=== PATIENT | male | born 1950 | race Caucasian/White ===

== ENCOUNTER 2016-12-16 13:51 | Inpatient (IN) | payer OTHER, MEDICAID ==
[~2016-12-16] VITALS: Ht 172.7 cm; Wt 88.5 kg
[2016-12-16 15:39] LABS: BASOPHILS % 0.3 % (0.0-2.0); EOSINOPHILS % 0.7 % (0.0-5.0); HEMATOCRIT. 37.8 % (42.0-52.0); HEMOGLOBIN. 12.1 g/dL (14.0-18.0); MEAN CORPUSCULAR HEMOGLOBIN 29.2 pg (28.0-32.0); MEAN CORPUSCULAR VOLUME 90.9 fL (80.0-94.0); MEAN PLATELET VOLUME 7.8 fl (7.4-10.4); MONOCYTES % 12.3 % (2.0-8.0); NEUTROPHILS % 52.7 % (40.0-76.0); PLATELET 156 x1000/uL (130-400); RED BLOOD CELL COUNT 4.15 mill/uL (4.7-6.1); RED CELL DISTRIBUTION WIDTH 15.5 % (11.6-14.6)
[2016-12-16 15:46] LABS: INR 1.2; PROTHROMBIN TIME 12.2 sec
[2016-12-16 15:55] LABS: CARBON DIOXIDE 32 mEq/L (21-32); CHLORIDE 100 mEq/L (98-107); TROPONIN I < 0.02 ng/mL (0.00-0.04)
[2016-12-16] MEDS ORDERED: SODIUM CHLORIDE 0.9% 500 ML IV ONE (16:30)
[2016-12-16] MEDS ORDERED: DEXTROSE 50% WATER 50ML SYRINGE IV PRN (22:00)
[2016-12-16] MEDS: NIFEDIPINE XL 60MG TAB PO SCH (22:23)
[2016-12-16] MEDS: HYDRALAZINE HCL 50MG TABLET PO SCH (22:23)
[2016-12-17] MEDS ORDERED: HYDRALAZINE 20MG/ML VIAL IV PRN (00:45)
[2016-12-17] MEDS: HYDRALAZINE HCL 50MG TABLET PO SCH ×3 (06:00→22:00)
[2016-12-17] MEDS ORDERED: SODIUM CHLORIDE 0.9% 250 ML IV NR (06:30)
[2016-12-17] MEDS: INSULIN LISPRO 100 UNITS/ML SUBCUT SCH ×4 (08:10→20:38)
[2016-12-17] MEDS: BLOOD SUGAR DIAGNOSTIC STRIP TEST SCH ×4 (08:10→20:38)
[2016-12-17] MEDS: PANTOPRAZOLE 40MG DR TABLET PO SCH (08:26)
[2016-12-17] MEDS: NIFEDIPINE XL 60MG TAB PO SCH (08:28)
[2016-12-17] MEDS: ENOXAPARIN 30MG/0.3ML SYR SUBCUT SCH (09:00)
[2016-12-17 12:07] LABS: BASOPHILS % 0.2 % (0.0-2.0); HEMATOCRIT. 36.7 % (42.0-52.0); HEMOGLOBIN. 11.9 g/dL (14.0-18.0); LYMPHOCYTES % 31.4 % (20.0-50.0); MEAN CORPUSCULAR HEMOGLOBIN 29.4 pg (28.0-32.0); MEAN CORPUSCULAR VOLUME 90.4 fL (80.0-94.0); MEAN PLATELET VOLUME 8.3 fl (7.4-10.4); MONOCYTES % 11.8 % (2.0-8.0); NEUTROPHILS % 55.6 % (40.0-76.0); PLATELET 159 x1000/uL (130-400); RED BLOOD CELL COUNT 4.06 mill/uL (4.7-6.1); RED CELL DISTRIBUTION WIDTH 15.4 % (11.6-14.6)
[2016-12-17 12:32] LABS: PHOSPHORUS 3.8 mg/dL (2.5-4.9)
[2016-12-18] MEDS: HYDRALAZINE HCL 50MG TABLET PO SCH ×3 (05:38→21:07)
[2016-12-18 06:54] LABS: BASOPHILS % 0.3 % (0.0-2.0); EOSINOPHILS % 0.9 % (0.0-5.0); HEMATOCRIT. 35.6 % (42.0-52.0); HEMOGLOBIN. 11.5 g/dL (14.0-18.0); LYMPHOCYTES % 34.5 % (20.0-50.0); MEAN CORPUSCULAR HEMOGLOBIN 29.4 pg (28.0-32.0); MEAN CORPUSCULAR VOLUME 91.1 fL (80.0-94.0); MEAN PLATELET VOLUME 8.4 fl (7.4-10.4); MONOCYTES % 12.4 % (2.0-8.0); NEUTROPHILS % 51.9 % (40.0-76.0); PLATELET 108 x1000/uL (130-400); RED BLOOD CELL COUNT 3.91 mill/uL (4.7-6.1); RED CELL DISTRIBUTION WIDTH 15.5 % (11.6-14.6)
[2016-12-18 07:03] LABS: CHLORIDE 109 mEq/L (98-107)
[2016-12-18] MEDS: BLOOD SUGAR DIAGNOSTIC STRIP TEST SCH ×4 (07:15→21:00)
[2016-12-18] MEDS: INSULIN LISPRO 100 UNITS/ML SUBCUT SCH ×4 (07:16→21:00)
[2016-12-18 07:21] LABS: CARBON DIOXIDE 25 mEq/L (21-32); HDL CHOLESTEROL 30 mg/dL (40-59); LDL CHOLESTEROL 116 mg/dL (5-100)
[2016-12-18] MEDS: FOLIC ACID/VITAMIN B COMP W-C TABLET PO SCH (08:01)
[2016-12-18] MEDS: PANTOPRAZOLE 40MG DR TABLET PO SCH (08:01)
[2016-12-18] MEDS: NIFEDIPINE XL 60MG TAB PO SCH (08:01)
[2016-12-18] MEDS: ENOXAPARIN 30MG/0.3ML SYR SUBCUT SCH (08:01)
[2016-12-19] MEDS: HYDRALAZINE HCL 50MG TABLET PO SCH ×2 (04:55→16:53)
[2016-12-19] MEDS: BLOOD SUGAR DIAGNOSTIC STRIP TEST SCH ×2 (04:59→12:40)
[2016-12-19] MEDS: INSULIN LISPRO 100 UNITS/ML SUBCUT SCH ×2 (08:10→13:10)
[2016-12-19] MEDS ORDERED: FAMOTIDINE 20MG TABLET PO SCH (09:00)
[2016-12-19] MEDS: HYDROCODONE/ACETAMINOPHEN 5/325MG TABLET PO PRN ×2 (09:11→15:55)
[2016-12-19] MEDS: FOLIC ACID/VITAMIN B COMP W-C TABLET PO SCH (09:11)
[2016-12-19] MEDS: NIFEDIPINE XL 60MG TAB PO SCH (09:11)
[2016-12-19] MEDS: ENOXAPARIN 30MG/0.3ML SYR SUBCUT SCH (09:12)
[2016-12-19 09:39] LABS: BASOPHILS % 0.2 % (0.0-2.0); EOSINOPHILS % 1.6 % (0.0-5.0); HEMATOCRIT. 40.9 % (42.0-52.0); HEMOGLOBIN. 13.1 g/dL (14.0-18.0); LYMPHOCYTES % 37.4 % (20.0-50.0); MEAN CORPUSCULAR HEMOGLOBIN 29.1 pg (28.0-32.0); MEAN CORPUSCULAR VOLUME 90.9 fL (80.0-94.0); MEAN PLATELET VOLUME 8.3 fl (7.4-10.4); MONOCYTES % 10.6 % (2.0-8.0); NEUTROPHILS % 50.2 % (40.0-76.0); PLATELET 124 x1000/uL (130-400); RED CELL DISTRIBUTION WIDTH 15.5 % (11.6-14.6)
[2016-12-19 09:51] LABS: PHOSPHORUS 3.9 mg/dL (2.5-4.9)
[2016-12-19 15:55] VITALS: BP 129/78
== END 2016-12-19 16:45 | disposition home or self-care (01) | DRG 308 ==
LOC: ER 14:30 → 7WST 16:25 → OBSVTOIN 16:25 → INTOOBSV 16:25 → EDBEDREQ 16:30 → ENRESERV 18:25
PROVIDERS: ADMIT Internal Medicine; ATTEND Internal Medicine
PROC: 5A1D00Z (ICD-10-PCS; principal; 2016-12-17)
DX: R00.1 Bradycardia, unspecified (principal); N18.6 End stage renal disease; I12.0 Hypertensive chronic kidney disease with stage 5 chronic kidney disease or end stage renal disease; E46 Unspecified protein-calorie malnutrition; R55 Syncope and collapse; B19.20 Unspecified viral hepatitis C without hepatic coma; D64.9 Anemia, unspecified; D69.6 Thrombocytopenia, unspecified; E11.22 Type 2 diabetes mellitus with diabetic chronic kidney disease; E66.9 Obesity, unspecified; E78.5 Hyperlipidemia, unspecified; M10.9 Gout, unspecified; N62 Hypertrophy of breast; N64.4 Mastodynia; E55.9 Vitamin D deficiency, unspecified; F10.10 Alcohol abuse, uncomplicated; F43.21 Adjustment disorder with depressed mood; K80.20 Calculus of gallbladder without cholecystitis without obstruction; Z88.0 Allergy status to penicillin; Z68.29 Body mass index [BMI] 29.0-29.9, adult; Z93.3 Colostomy status; Z99.2 Dependence on renal dialysis; T46.5X5A Adverse effect of other antihypertensive drugs, initial encounter
CPT/HCPCS: 36415; 70450; 71010; 80048; 80053; 80061; 82962; 83735; 84100; 84443; 84484; 85025; 85610; 93005; 93880; 96360; 96361; 99285; J0360; J1650; J1815; J7030; J7040; J7050

== ENCOUNTER 2016-12-22 17:53 | Emergency (ER) | payer OTHER, MEDICAID ==
[~2016-12-22] VITALS: Ht 172.7 cm; Wt 71.3 kg
[2016-12-22] MEDS ORDERED: ONDANSETRON HCL 4MG/2ML VIAL IV STA (19:09)
[2016-12-22 19:46] LABS: BASOPHILS % 0.1 % (0.0-2.0); EOSINOPHILS % 0.3 % (0.0-5.0); HEMATOCRIT. 38.9 % (42.0-52.0); HEMOGLOBIN. 12.6 g/dL (14.0-18.0); MEAN CORPUSCULAR HEMOGLOBIN 29.1 pg (28.0-32.0); MEAN CORPUSCULAR VOLUME 89.7 fL (80.0-94.0); MEAN PLATELET VOLUME 7.8 fl (7.4-10.4); MONOCYTES % 12.6 % (2.0-8.0); PLATELET 138 x1000/uL (130-400); RED BLOOD CELL COUNT 4.34 mill/uL (4.7-6.1); RED CELL DISTRIBUTION WIDTH 15.5 % (11.6-14.6)
[2016-12-22 19:48] LABS: CLARITY URINE CLEAR (CLEAR); COLOR URINE YELLOW (YELLOW); KETONES URINE NEGATIVE (NEGATIVE); LEUKOCYTE ESTERASE URINE NEGATIVE (NEGATIVE); NITRITE URINE NEGATIVE (NEGATIVE); OCCULT BLOOD URINE TRACE (NEGATIVE); PH URINE >=9.0 (4.5-8.0); PROTEIN URINE 3+ (NEGATIVE); SPECIFIC GRAVITY URINE 1.012 (1.005-1.030); UROBILINOGEN URINE 0.2 E.U./dL (0.2-1.0)
[2016-12-22 19:50] LABS: INR 1.3; PROTHROMBIN TIME 13.9 sec
[2016-12-22 19:54] LABS: CARBON DIOXIDE 30 mEq/L (21-32); CHLORIDE 99 mEq/L (98-107)
[2016-12-22 20:00] LABS: TROPONIN I < 0.02 ng/mL (0.00-0.04)
[2016-12-22] MEDS ORDERED: CLONIDINE 0.1MG TABLET PO ONE (21:45)
[2016-12-22 22:46] VITALS: BP 182/102
== END 2016-12-22 23:51 | disposition home or self-care (01) ==
LOC: ER 19:06
DX: I12.0 Hypertensive chronic kidney disease with stage 5 chronic kidney disease or end stage renal disease (principal); N18.6 End stage renal disease; E11.22 Type 2 diabetes mellitus with diabetic chronic kidney disease; R11.10 Vomiting, unspecified; E78.00 Pure hypercholesterolemia, unspecified; Z93.3 Colostomy status; Z88.0 Allergy status to penicillin; Z99.2 Dependence on renal dialysis
CPT/HCPCS: 36415; 70450; 71010; 80053; 81001; 82962; 83605; 83690; 84484; 85025; 85610; 87040; 87086; 93005; 96374; 99285; J2405

== ENCOUNTER 2017-10-11 05:22 | Inpatient (IN) | payer OTHER, MEDICAID ==
[~2017-10-11] VITALS: Ht 170.2 cm; Wt 84.4 kg
[2017-10-11] MEDS ORDERED: CLON1PAT38 TD (06:22)
[2017-10-11] MEDS ORDERED: SEVE800T8 PO (06:22)
[2017-10-11] MEDS ORDERED: GLIP10TA10 PO (06:24)
[2017-10-11 06:26] LABS: CLARITY URINE CLEAR (CLEAR); COLOR URINE YELLOW (YELLOW); KETONES URINE NEGATIVE (NEGATIVE); LEUKOCYTE ESTERASE URINE NEGATIVE (NEGATIVE); NITRITE URINE NEGATIVE (NEGATIVE); OCCULT BLOOD URINE NEGATIVE (NEGATIVE); PH URINE 8.5 (4.5-8.0); PROTEIN URINE 3+ (NEGATIVE); SPECIFIC GRAVITY URINE 1.013 (1.005-1.030); UROBILINOGEN URINE 0.2 E.U./dL (0.2-1.0)
[2017-10-11] MEDS: SODIUM CHLORIDE 0.9% 500 ML IV NR ×2 (06:30→11:30)
[2017-10-11] MEDS ORDERED: BUPIVACAINE HCL 0.5% (5MG/ML) 50ML ONE ×2 (07:07→07:39)
[2017-10-11] MEDS ORDERED: ROCURONIUM BROMIDE 10MG/ML VIAL 5ML IV ONE (07:27)
[2017-10-11] MEDS ORDERED: FENTANYL CITRATE/PF 50MCG/ML 5ML VIAL ONE (07:27)
[2017-10-11] MEDS ORDERED: PROPOFOL 200MG/20ML VIAL IV ONE (07:28)
[2017-10-11] MEDS ORDERED: LEVOFLOXACIN 500MG PREMIX 100 ML IV ONE (07:30)
[2017-10-11] MEDS ORDERED: LIDOCAINE HCL/PF 1% 10 MG/ML 5ML VIAL ONE (07:30)
[2017-10-11] MEDS ORDERED: SUCCINYLCHOLINE CHLORIDE 200MG/10ML VIAL IV ONE (07:30)
[2017-10-11] MEDS ORDERED: MIDAZOLAM HCL 2 MG/2 ML VIAL ONE (07:31)
[2017-10-11] MEDS ORDERED: LABETALOL HCL 5MG/ML VIAL 20ML IV PRN (08:00)
[2017-10-11] MEDS ORDERED: ONDANSETRON HCL 4MG/2ML VIAL IV PRN (08:00)
[2017-10-11] MEDS ORDERED: MEPERIDINE HCL/PF 25MG/ML CPJ IV PRN (08:00)
[2017-10-11] MEDS ORDERED: PHENYLEPHRINE HCL 10 MG/ML 1ML (IV VIAL) IV ONE (08:22)
[2017-10-11] MEDS ORDERED: BACITRACIN 50,000 UNITS/VIAL ONE (08:57)
[2017-10-11] MEDS ORDERED: BUPIVACAINE HCL 0.5% 290 ML in ON-Q PM025 DRUG DELIV DEVICE 1 EA IR SCH (09:00)
[2017-10-11] MEDS ORDERED: METOCLOPRAMIDE HCL 10MG/2ML VIAL ONE (09:14)
[2017-10-11] MEDS ORDERED: GLYCOPYRROLATE 0.2 MG/ML 2ML VIAL ONE (09:14)
[2017-10-11] MEDS ORDERED: NEOSTIGMINE METHYLSULFATE 1MG/ML 10 ML VIAL ONE (09:14)
[2017-10-11] MEDS: HYDROMORPHONE HCL/PF 2MG/ML CPJ IV PRN ×5 (10:05→11:25)
[2017-10-11] MEDS ORDERED: NALOXONE INJ IV PRN (10:15)
[2017-10-11] MEDS ORDERED: DIPHENHYDRAMINE INJ IV PRN (10:15)
[2017-10-11] MEDS ORDERED: ONDANSETRON INJ IV PRN (10:15)
[2017-10-11] MEDS ORDERED: HYDROMORPHONE PCA 10MG/50ML IV PRN (10:15)
[2017-10-11 12:30] VITALS: BP 160/70
[2017-10-11 12:45] VITALS: BP 160/70
[2017-10-11] MEDS ORDERED: ROPI0.5T PO (13:26)
[2017-10-11] MEDS: FAMOTIDINE 20MG/2ML VIAL IV SCH (14:58)
[2017-10-11] MEDS: DEXT 5%/0.45% NACL KCL 20MEQ/L 1,000 ML IV SCH (15:05)
[2017-10-11 16:00] VITALS: BP 119/55
[2017-10-11] MEDS ORDERED: DEXTROSE 50% WATER 50ML SYRINGE IV PRN (19:30)
[2017-10-11] MEDS ORDERED: SODIUM CHLORIDE 0.9% 500 ML IV ONE (20:30)
[2017-10-11] MEDS: BLOOD SUGAR DIAGNOSTIC STRIP TEST SCH (20:44)
[2017-10-11] MEDS: INSULIN LISPRO 100 UNITS/ML SUBCUT SCH (20:44)
[2017-10-11 21:24] VITALS: BP 90/51
[2017-10-11 21:51] VITALS: BP 91/47
[2017-10-11 23:50] VITALS: BP 95/46
[2017-10-12] VITALS (14 sets, daily range): BP systolic 82–126; BP diastolic 42–63
[2017-10-12 00:25] LABS: BASOPHILS % 0.1 % (0.0-2.0); EOSINOPHILS % 0.1 % (0.0-5.0); HEMATOCRIT. 33.8 % (42.0-52.0); HEMOGLOBIN. 11.8 g/dL (14.0-18.0); MEAN CORPUSCULAR HEMOGLOBIN 34.8 pg (28.0-32.0); MEAN CORPUSCULAR VOLUME 99.5 fL (80.0-94.0); MEAN PLATELET VOLUME 9.4 fl (7.4-10.4); MONOCYTES % 8.2 % (2.0-8.0); NEUTROPHILS % 78.6 % (40.0-76.0); PLATELET 108 x1000/uL (130-400); RED CELL DISTRIBUTION WIDTH 14.4 % (11.6-14.6)
[2017-10-12] MEDS: DEXT 5%/0.45% NACL KCL 20MEQ/L 1,000 ML IV SCH (01:52)
[2017-10-12] MEDS ORDERED: SODIUM CHLORIDE 0.9% 250 ML IV NR (06:45)
[2017-10-12] MEDS: DEXT 5%/0.45% NACL 1000ML 1,000 ML IV SCH ×4 (07:39→21:36)
[2017-10-12] MEDS: BLOOD SUGAR DIAGNOSTIC STRIP TEST SCH ×4 (07:55→20:08)
[2017-10-12] MEDS: INSULIN LISPRO 100 UNITS/ML SUBCUT SCH ×4 (08:00→20:08)
[2017-10-12] MEDS: FAMOTIDINE 20MG/2ML VIAL IV SCH (08:39)
[2017-10-12] MEDS: ACETAMINOPHEN 650MG SUPP PR PRN ×2 (10:07→19:59)
[2017-10-12] MEDS ORDERED: VANCOMYCIN 1 G PREMIX 200 ML IV SCH (12:00)
[2017-10-12] MEDS ORDERED: SODIUM CHLORIDE 0.9% 250 ML IV ONE (12:15)
[2017-10-12] MEDS ORDERED: AMIKACIN SULFATE 400 MG in SODIUM CHLORIDE 0.9% 100 ML IV SCH (17:30)
[2017-10-12 17:33] LABS: HEMATOCRIT 34.6 % (42.0-52.0); HEMOGLOBIN 11.8 g/dL (14.0-18.0); MEAN CORPUSCULAR HEMOGLOBIN 34.4 pg (28.0-32.0); PLATELET 88 x1000/uL (130-400); RED BLOOD CELL COUNT 3.43 mill/uL (4.7-6.1); RED CELL DISTRIBUTION WIDTH 14.6 % (11.6-14.6)
[2017-10-12 17:40] LABS: CHLORIDE 109 mEq/L (98-107)
[2017-10-12 17:46] LABS: PHOSPHORUS 2.5 mg/dL (2.5-4.9)
[2017-10-13] VITALS (11 sets, daily range): BP systolic 115–140; BP diastolic 55–70
[2017-10-13 06:39] LABS: INR 1.8; PARTIAL THROMBOPLASTIN TIME 33.2 sec (23.4-31.0); PROTHROMBIN TIME 18.5 sec (9.4-11.6)
[2017-10-13 07:20] LABS: BASOPHILS % 0.2 % (0.0-2.0); EOSINOPHILS % 0.9 % (0.0-5.0); HEMATOCRIT. 30.8 % (42.0-52.0); HEMOGLOBIN. 10.5 g/dL (14.0-18.0); LYMPHOCYTES % 11.9 % (20.0-50.0); MEAN CORPUSCULAR HEMOGLOBIN 34.4 pg (28.0-32.0); MEAN CORPUSCULAR VOLUME 100.3 fL (80.0-94.0); MEAN PLATELET VOLUME 9.7 fl (7.4-10.4); MONOCYTES % 8.7 % (2.0-8.0); NEUTROPHILS % 78.3 % (40.0-76.0); PLATELET 82 x1000/uL (130-400); RED BLOOD CELL COUNT 3.07 mill/uL (4.7-6.1); RED CELL DISTRIBUTION WIDTH 14.1 % (11.6-14.6)
[2017-10-13 07:27] LABS: CHLORIDE 109 mEq/L (98-107)
[2017-10-13 07:40] LABS: PHOSPHORUS 4.3 mg/dL (2.5-4.9)
[2017-10-13] MEDS: BLOOD SUGAR DIAGNOSTIC STRIP TEST SCH ×4 (07:58→21:00)
[2017-10-13] MEDS: INSULIN LISPRO 100 UNITS/ML SUBCUT SCH ×4 (07:58→21:00)
[2017-10-13] MEDS: FAMOTIDINE 20MG/2ML VIAL IV SCH (09:10)
[2017-10-13] MEDS: DEXT 5%/0.45% NACL 1000ML 1,000 ML IV SCH (17:24)
[2017-10-14] VITALS (13 sets, daily range): BP systolic 109–149; BP diastolic 49–71
[2017-10-14] MEDS: MORPHINE SULFATE 4 MG/ML CPJ (NOT FOR IM USE) IV PRN ×3 (04:18→19:28)
[2017-10-14] MEDS: BLOOD SUGAR DIAGNOSTIC STRIP TEST SCH ×4 (07:30→21:13)
[2017-10-14] MEDS: INSULIN LISPRO 100 UNITS/ML SUBCUT SCH ×4 (08:00→21:00)
[2017-10-14 08:06] LABS: BASOPHILS % 0.1 % (0.0-2.0); EOSINOPHILS % 1.8 % (0.0-5.0); HEMATOCRIT. 29.4 % (42.0-52.0); HEMOGLOBIN. 9.9 g/dL (14.0-18.0); LYMPHOCYTES % 14.7 % (20.0-50.0); MEAN CORPUSCULAR HEMOGLOBIN 33.9 pg (28.0-32.0); MEAN CORPUSCULAR VOLUME 100.6 fL (80.0-94.0); MEAN PLATELET VOLUME 9.5 fl (7.4-10.4); MONOCYTES % 7.6 % (2.0-8.0); NEUTROPHILS % 75.8 % (40.0-76.0); PLATELET 86 x1000/uL (130-400); RED BLOOD CELL COUNT 2.92 mill/uL (4.7-6.1)
[2017-10-14] MEDS: FAMOTIDINE 20MG/2ML VIAL IV SCH (08:45)
[2017-10-14] MEDS: DEXT 5%/0.45% NACL 1000ML 1,000 ML IV SCH (13:19)
[2017-10-15] VITALS (7 sets, daily range): BP systolic 141–166; BP diastolic 71–78
[2017-10-15] MEDS: MORPHINE SULFATE 4 MG/ML CPJ (NOT FOR IM USE) IV PRN ×2 (06:06→18:28)
[2017-10-15 07:09] LABS: HEMATOCRIT 31.1 % (42.0-52.0); HEMOGLOBIN 10.6 g/dL (14.0-18.0); MEAN CORPUSCULAR HEMOGLOBIN 33.9 pg (28.0-32.0); MEAN CORPUSCULAR VOLUME 99.4 fL (80.0-94.0); PLATELET 91 x1000/uL (130-400); RED BLOOD CELL COUNT 3.13 mill/uL (4.7-6.1); RED CELL DISTRIBUTION WIDTH 14.1 % (11.6-14.6)
[2017-10-15] MEDS: BLOOD SUGAR DIAGNOSTIC STRIP TEST SCH ×4 (07:53→21:00)
[2017-10-15] MEDS: INSULIN LISPRO 100 UNITS/ML SUBCUT SCH ×4 (07:53→21:00)
[2017-10-15] MEDS: FAMOTIDINE 20MG/2ML VIAL IV SCH (08:34)
[2017-10-15] MEDS: ONDANSETRON HCL 4MG/2ML VIAL IV PRN (10:54)
[2017-10-15] MEDS: DEXT 5%/0.45% NACL 1000ML 1,000 ML IV SCH (15:55)
[2017-10-16] VITALS (7 sets, daily range): BP systolic 129–170; BP diastolic 62–91
[2017-10-16] MEDS: MORPHINE SULFATE 4 MG/ML CPJ (NOT FOR IM USE) IV PRN ×2 (00:28→05:54)
[2017-10-16] MEDS: ONDANSETRON HCL 4MG/2ML VIAL IV PRN (05:49)
[2017-10-16 06:52] LABS: HEMATOCRIT 31.1 % (42.0-52.0); HEMOGLOBIN 10.7 g/dL (14.0-18.0); MEAN CORPUSCULAR VOLUME 98.9 fL (80.0-94.0); PLATELET 100 x1000/uL (130-400); RED BLOOD CELL COUNT 3.14 mill/uL (4.7-6.1); RED CELL DISTRIBUTION WIDTH 13.9 % (11.6-14.6)
[2017-10-16] MEDS: BLOOD SUGAR DIAGNOSTIC STRIP TEST SCH ×4 (07:34→21:25)
[2017-10-16] MEDS: INSULIN LISPRO 100 UNITS/ML SUBCUT SCH ×4 (07:35→21:00)
[2017-10-16] MEDS: FAMOTIDINE 20MG/2ML VIAL IV SCH (09:08)
[2017-10-16] MEDS ORDERED: CLONIDINE 0.1MG TABLET PO PRN (10:30)
[2017-10-16] MEDS: DEXT 5%/0.45% NACL 1000ML 1,000 ML IV SCH (11:50)
[2017-10-16] MEDS: NIFEDIPINE XL 60MG TAB PO SCH (11:50)
[2017-10-16] MEDS: HYDRALAZINE HCL 50MG TABLET PO SCH (21:00)
[2017-10-17] VITALS: BP 139/74
[2017-10-17] MEDS: DEXT 5%/0.45% NACL 1000ML 1,000 ML IV SCH (01:15)
[2017-10-17 04:00] VITALS: BP 155/68
[2017-10-17] MEDS: BLOOD SUGAR DIAGNOSTIC STRIP TEST SCH (07:30)
[2017-10-17 08:00] VITALS: BP 133/66
[2017-10-17] MEDS: INSULIN LISPRO 100 UNITS/ML SUBCUT SCH (08:00)
[2017-10-17] MEDS: HYDRALAZINE HCL 50MG TABLET PO SCH (09:20)
[2017-10-17] MEDS: FAMOTIDINE 20MG/2ML VIAL IV SCH (09:20)
[2017-10-17] MEDS: NIFEDIPINE XL 60MG TAB PO SCH (09:20)
[2017-10-17 09:59] VITALS: BP 132/62
== END 2017-10-17 11:30 | disposition home or self-care (01) | DRG 329 ==
LOC: ORIP 05:22 → UNDOADMIN 05:22 → ORIP 12:16 → 6EST 12:16 → 5EST 21:35 → 6EST 21:35 → 5EST 21:36
PROVIDERS: ADMIT Internal Medicine; ATTEND Internal Medicine
PROC: 0DQM0ZZ Repair Descending Colon, Open Approach (ICD-10-PCS; principal; 2017-10-11 07:30)
PROC: 5A1D70Z Performance of Urinary Filtration, Intermittent, Less than 6 Hours Per Day (ICD-10-PCS; 2017-10-12)
PROC: 5A1D70Z Performance of Urinary Filtration, Intermittent, Less than 6 Hours Per Day (ICD-10-PCS; 2017-10-14)
PROC: 5A1D70Z Performance of Urinary Filtration, Intermittent, Less than 6 Hours Per Day (ICD-10-PCS; 2017-10-17)
DX: Z43.3 Encounter for attention to colostomy (principal); N18.6 End stage renal disease; I95.9 Hypotension, unspecified; D69.6 Thrombocytopenia, unspecified; E11.22 Type 2 diabetes mellitus with diabetic chronic kidney disease; I12.0 Hypertensive chronic kidney disease with stage 5 chronic kidney disease or end stage renal disease; K56.7 Ileus, unspecified; F32.9 Major depressive disorder, single episode, unspecified; E87.6 Hypokalemia; B19.20 Unspecified viral hepatitis C without hepatic coma; D53.9 Nutritional anemia, unspecified; Y83.3 Surgical operation with formation of external stoma as the cause of abnormal reaction of the patient, or of later complication, without mention of misadventure at the time of the procedure; E78.5 Hyperlipidemia, unspecified; M10.9 Gout, unspecified; Z90.49 Acquired absence of other specified parts of digestive tract; Z87.828 Personal history of other (healed) physical injury and trauma; Z99.2 Dependence on renal dialysis; Z88.0 Allergy status to penicillin
CPT/HCPCS: 36415; 71045; 74018; 80048; 80053; 81003; 82962; 83036; 83735; 84100; 84132; 85025; 85027; 85610; 85730; 86850; 86900; 87040; 87086; 88304; 88305; 93005; 97116; 97162; 97530; J0278; J0330; J1170; J1956; J2250; J2270; J2370; J2405; J2704; J2710; J2765; J3010; J3370; J3490; J7030; J7040; J7050

== ENCOUNTER 2018-03-20 13:08 | Inpatient (IN) | payer OTHER, MEDICAID ==
[~2018-03-20] VITALS: Ht 172.7 cm; Wt 83.9 kg
[~2018-03-20 13:08] MED LIST: CLON1PAT38 TD; GLIP10TA10 PO; ROPI0.5T PO; SEVE800T8 PO
[2018-03-20] MEDS ORDERED: MORPHINE SULFATE 4 MG/ML CPJ (NOT FOR IM USE) IV STA (15:13)
[2018-03-20] MEDS ORDERED: SODIUM CHLORIDE 0.9% 1,000 ML IV ONE (15:13)
[2018-03-20] MEDS ORDERED: ONDANSETRON HCL 4MG/2ML INJ IV STA (15:13)
[2018-03-20] MEDS ORDERED: LIDOCAINE 1%/EPI 1:100,000 10 ML VIAL IJ ONE (15:30)
[2018-03-20 16:07] LABS: BASOPHILS % 0.2 % (0.0-2.0); EOSINOPHILS % 0.7 % (0.0-5.0); HEMATOCRIT. 32.9 % (42.0-52.0); HEMOGLOBIN. 11.1 g/dL (14.0-18.0); LYMPHOCYTES % 20.8 % (20.0-50.0); MEAN CORPUSCULAR HEMOGLOBIN 33.3 pg (28.0-32.0); MEAN CORPUSCULAR VOLUME 98.8 fL (80.0-94.0); MEAN PLATELET VOLUME 9.2 fl (7.4-10.4); MONOCYTES % 14.7 % (2.0-8.0); NEUTROPHILS % 63.6 % (40.0-76.0); PLATELET 109 x1000/uL (130-400); RED BLOOD CELL COUNT 3.33 mill/uL (4.7-6.1); RED CELL DISTRIBUTION WIDTH 15.4 % (11.6-14.6)
[2018-03-20 16:13] LABS: CHLORIDE 96 mEq/L (98-107); INR 1.1; PARTIAL THROMBOPLASTIN TIME 27.9 sec (23.4-31.0); PROTHROMBIN TIME 11.3 sec (9.1-11.1)
[2018-03-20 23:30] VITALS: BP 130/76
[2018-03-21] VITALS: BP 130/76
[2018-03-21] MEDS ORDERED: GABA-529 MT (00:31)
[2018-03-21] MEDS ORDERED: CLON0.5T23 MT (00:31)
[2018-03-21] MEDS ORDERED: ROPINIROLE HCL 2 MG PO SCH (01:00)
[2018-03-21] MEDS ORDERED: MEDICATION NOT ON FORMULARY EA (Clonazepam 1 TAB) MT SCH (01:00)
[2018-03-21] MEDS ORDERED: DEXTROSE 50% WATER 50ML SYRINGE IV PRN (01:00)
[2018-03-21] MEDS ORDERED: GLIP10TA10 MT (01:02)
[2018-03-21] MEDS ORDERED: HYDR-4135 MT (01:10)
[2018-03-21] MEDS ORDERED: HYDROCODONE/ACETAMINOPHEN 5/325MG TABLET PO PRN (01:15)
[2018-03-21 04:00] VITALS: BP 117/61
[2018-03-21] MEDS ORDERED: VANCOMYCIN 1 G PREMIX 200 ML IV SCH (05:00)
[2018-03-21] MEDS ORDERED: LEVOFLOXACIN 500MG PREMIX 100 ML IV SCH (06:00)
[2018-03-21] MEDS: HYDRALAZINE HCL 50MG TABLET PO SCH ×2 (06:21→13:34)
[2018-03-21] MEDS: BLOOD SUGAR DIAGNOSTIC STRIP TEST SCH ×2 (06:22→12:14)
[2018-03-21] MEDS ORDERED: BLOOD SUGAR DIAGNOSTIC STRIP TEST SCH (07:10)
[2018-03-21] MEDS ORDERED: SEVELAMER CARBONATE PO SCH (07:40)
[2018-03-21] MEDS: SEVELAMER CARBONATE 800 MG TABLET PO SCH ×2 (07:59→12:40)
[2018-03-21] MEDS: INSULIN LISPRO 100 UNITS/ML SUBCUT SCH ×2 (08:00→12:14)
[2018-03-21 08:05] VITALS: BP 106/52
[2018-03-21] MEDS: GABAPENTIN 100MG CAPSULE PO SCH ×2 (08:52→12:57)
[2018-03-21] MEDS ORDERED: MEDICATION NOT ON FORMULARY EA (Gabapentin 1 CAP) MT SCH (09:00)
[2018-03-21] MEDS ORDERED: GLIPIZIDE 10MG TABLET PO SCH (09:00)
[2018-03-21] MEDS ORDERED: MEDICATION NOT ON FORMULARY EA (Hydralazine Hcl 1 TAB) MT SCH (09:00)
[2018-03-21 12:00] VITALS: BP 137/63
[2018-03-21 14:37] VITALS: BP 137/63
[2018-03-21] MEDS ORDERED: CLONAZEPAM 0.5MG TABLET PO SCH (21:00)
[2018-03-21] MEDS ORDERED: ROPINIROLE HCL 1MG TABLET PO SCH (21:00)
[2018-03-24] MEDS ORDERED: CLONIDINE HCL 0.2MG/24HR PATCH TOP SCH (09:00)
[2018-03-24] MEDS ORDERED: CLONIDINE TD SCH (09:00)
== END 2018-03-21 15:20 | disposition home or self-care (01) | DRG 564 ==
LOC: ER 13:08 → 8WST 18:10 → ENRESERV 21:12 → 8WST 03-21 00:27
PROVIDERS: ADMIT Internal Medicine; ATTEND Internal Medicine
PROC: 0S9D3ZZ Drainage of Left Knee Joint, Percutaneous Approach (ICD-10-PCS; principal; 2018-03-20)
DX: M25.462 Effusion, left knee (principal); N18.6 End stage renal disease; I12.0 Hypertensive chronic kidney disease with stage 5 chronic kidney disease or end stage renal disease; E11.22 Type 2 diabetes mellitus with diabetic chronic kidney disease; E78.00 Pure hypercholesterolemia, unspecified; M10.9 Gout, unspecified; Z93.3 Colostomy status; Z99.2 Dependence on renal dialysis; Z88.0 Allergy status to penicillin; Z79.899 Other long term (current) drug therapy
CPT/HCPCS: 36415; 73560; 80053; 82962; 84550; 85025; 85610; 85651; 85730; 86140; 87040; 87070; 87205; 93971; 96361; 96374; 96375; 99285; J1815; J1956; J2270; J2405; J3370; J3490; J7030; J7040

== ENCOUNTER 2018-08-10 08:26 | Emergency (ER) | payer OTHER, MEDICAID ==
[~2018-08-10] VITALS: Ht 172.7 cm; Wt 86.0 kg
[~2018-08-10 08:26] MED LIST changes: +CLON0.5T23 MT; +GABA-529 MT; +GLIP10TA10 MT; +HYDR-4135 MT
[2018-08-10] MEDS ORDERED: TETRACAINE 0.5% OPHTH DROPS 4ML BOTHEYE ONE (10:00)
[2018-08-10] MEDS ORDERED: FLUORESCEIN SODIUM 1MG/STRIP BOTHEYE ONE (10:00)
[2018-08-10] MEDS ORDERED: TETANUS, DIPHTHERIA, PERTUSSIS VAC/PF 0.5ML (>7YR OLD) IM ONE (11:15)
[2018-08-10 11:49] VITALS: BP 119/64
== END 2018-08-10 11:54 | disposition home or self-care (01) ==
LOC: ER 08:26
DX: T15.92XA Foreign body on external eye, part unspecified, left eye, initial encounter (principal); I10 Essential (primary) hypertension; I12.0 Hypertensive chronic kidney disease with stage 5 chronic kidney disease or end stage renal disease; E11.22 Type 2 diabetes mellitus with diabetic chronic kidney disease; N18.6 End stage renal disease; E78.00 Pure hypercholesterolemia, unspecified; Z99.2 Dependence on renal dialysis; Z93.3 Colostomy status; Z98.890 Other specified postprocedural states; Z88.0 Allergy status to penicillin; Z79.899 Other long term (current) drug therapy
CPT/HCPCS: 99283

== ENCOUNTER 2018-08-11 08:41 | Emergency (ER) | payer OTHER, MEDICAID ==
[~2018-08-11] VITALS: Ht 172.7 cm; Wt 86.0 kg
[2018-08-11] MEDS ORDERED: TETRACAINE 0.5% OPHTH DROPS 4ML LEFTEYE ONE (11:00)
[2018-08-11] MEDS ORDERED: FLUORESCEIN SODIUM 1MG/STRIP LEFTEYE ONE (11:15)
[2018-08-11 11:45] VITALS: BP 121/67
== END 2018-08-11 11:51 | disposition home or self-care (01) ==
LOC: ER 08:41
DX: T15.02XA Foreign body in cornea, left eye, initial encounter (principal); X58.XXXA Exposure to other specified factors, initial encounter; Y93.89 Activity, other specified; Y92.69 Other specified industrial and construction area as the place of occurrence of the external cause; Y99.0 Civilian activity done for income or pay
CPT/HCPCS: 65222; 99284

== ENCOUNTER 2018-09-20 21:06 | Inpatient (IN) | payer MEDICAID, OTHER ==
[~2018-09-20] VITALS: Ht 172.7 cm; Wt 86.0 kg
[2018-09-20] MEDS ORDERED: ONDANSETRON HCL 4MG/2ML INJ IV ONE (21:45)
[2018-09-20] MEDS ORDERED: MORPHINE SULFATE 4 MG/ML CPJ (NOT FOR IM USE) IV ONE (21:45)
[2018-09-20 22:08] LABS: CHLORIDE 101 mEq/L (98-107)
[2018-09-20 22:10] LABS: BASOPHILS % 0.1 % (0.0-2.0); EOSINOPHILS % 0.4 % (0.0-5.0); HEMATOCRIT. 34.4 % (42.0-52.0); HEMOGLOBIN. 11.6 g/dL (14.0-18.0); LYMPHOCYTES % 24.6 % (20.0-50.0); MEAN CORPUSCULAR HEMOGLOBIN 33.6 pg (28.0-32.0); MEAN CORPUSCULAR VOLUME 99.1 fL (80.0-94.0); MEAN PLATELET VOLUME 10.4 fl (7.4-10.4); MONOCYTES % 13.5 % (2.0-8.0); NEUTROPHILS % 61.4 % (40.0-76.0); PLATELET 106 x1000/uL (130-400); RED BLOOD CELL COUNT 3.47 mill/uL (4.7-6.1); RED CELL DISTRIBUTION WIDTH 14.2 % (11.6-14.6)
[2018-09-20 22:11] LABS: INR 1.1; PROTHROMBIN TIME 11.4 sec (9.6-11.0)
[2018-09-21] VITALS (8 sets, daily range): BP systolic 131–165; BP diastolic 51–74
[2018-09-21] MEDS ORDERED: METRONIDAZOLE 500 MG PREMIX 100 ML IV ONE
[2018-09-21] MEDS ORDERED: LEVOFLOXACIN 500MG PREMIX 100 ML IV ONE
[2018-09-21] MEDS ORDERED: FENTANYL CITRATE/PF 50MCG/ML 2ML VIAL IV ONE
[2018-09-21] MEDS ORDERED: LORAZEPAM 2MG/ML CPJ IV ONE
[2018-09-21] MEDS ORDERED: LEVOFLOXACIN 250MG PREMIX 50 ML IV SCH (03:30)
[2018-09-21] MEDS: ONDANSETRON HCL 4MG/2ML INJ IV PRN (04:40)
[2018-09-21] MEDS: MORPHINE SULFATE 4 MG/ML CPJ (NOT FOR IM USE) IV PRN ×3 (04:40→15:07)
[2018-09-21] MEDS: DEXT 5%/0.45% NACL 1000ML 1,000 ML IV SCH ×2 (04:41→23:40)
[2018-09-21] MEDS ORDERED: METRONIDAZOLE 250 MG PREMIX 50 ML IV SCH (05:00)
[2018-09-21] MEDS: METRONIDAZOLE 500 MG PREMIX 100 ML IV SCH ×2 (12:03→23:40)
[2018-09-21] MEDS ORDERED: DEXTROSE 50% WATER 50ML SYRINGE IV PRN (12:45)
[2018-09-21] MEDS: BLOOD SUGAR DIAGNOSTIC STRIP TEST SCH ×3 (12:50→20:55)
[2018-09-21] MEDS: INSULIN LISPRO 100 UNITS/ML SUBCUT SCH ×3 (13:10→20:55)
[2018-09-21 15:13] LABS: CHLORIDE 103 mEq/L (98-107)
[2018-09-21 15:16] LABS: HEMATOCRIT 33.8 % (42.0-52.0); HEMOGLOBIN 11.3 g/dL (14.0-18.0); MEAN CORPUSCULAR HEMOGLOBIN 33.3 pg (28.0-32.0); MEAN CORPUSCULAR VOLUME 99.7 fL (80.0-94.0); PLATELET 88 x1000/uL (130-400); RED BLOOD CELL COUNT 3.39 mill/uL (4.7-6.1)
[2018-09-21] MEDS ORDERED: MORPHINE SULFATE 4 MG/ML CPJ (NOT FOR IM USE) IV NR (17:30)
[2018-09-21] MEDS: PANTOPRAZOLE SODIUM 40 MG/VIAL IV SCH (20:55)
[2018-09-21] MEDS ORDERED: VANCOMYCIN 1 G PREMIX 200 ML IV ONE (21:00)
[2018-09-21] MEDS: ACETAMINOPHEN 325MG TABLET PO PRN (21:30)
[2018-09-21] MEDS ORDERED: VANCOMYCIN 1500MG in DEXTROSE 5% WATER 250ML IV NR (22:00)
[2018-09-22] MEDS ORDERED: GENTAMICIN 120MG PREMIX 100 ML IV NR
[2018-09-22 04:00] VITALS: BP 168/67
[2018-09-22 05:54] LABS: HEMATOCRIT 35.9 % (42.0-52.0); HEMOGLOBIN 12.2 g/dL (14.0-18.0); MEAN CORPUSCULAR VOLUME 99.7 fL (80.0-94.0); PLATELET 98 x1000/uL (130-400); RED CELL DISTRIBUTION WIDTH 14.1 % (11.6-14.6)
[2018-09-22] MEDS: BLOOD SUGAR DIAGNOSTIC STRIP TEST SCH ×4 (06:35→21:00)
[2018-09-22 08:00] VITALS: BP 142/53
[2018-09-22] MEDS: INSULIN LISPRO 100 UNITS/ML SUBCUT SCH ×4 (08:02→21:00)
[2018-09-22] MEDS: ACETAMINOPHEN 325MG TABLET PO PRN ×2 (08:05→19:02)
[2018-09-22] MEDS: PANTOPRAZOLE SODIUM 40 MG/VIAL IV SCH (09:25)
[2018-09-22 12:00] VITALS: BP 161/71
[2018-09-22] MEDS: METRONIDAZOLE 500 MG PREMIX 100 ML IV SCH (12:04)
[2018-09-22 16:00] VITALS: BP 190/81
[2018-09-22] MEDS: HYDRALAZINE 20MG/ML VIAL IV PRN (16:41)
[2018-09-22 18:00] VITALS: BP 129/66
[2018-09-22] MEDS: ONDANSETRON HCL 4MG/2ML INJ IV PRN (19:01)
[2018-09-22 20:00] VITALS: BP 138/56
[2018-09-23] VITALS: BP 152/79
[2018-09-23] MEDS ORDERED: LEVOFLOXACIN 250MG PREMIX 50 ML IV SCH
[2018-09-23] MEDS: METRONIDAZOLE 500 MG PREMIX 100 ML IV SCH ×3 (00:19→23:41)
[2018-09-23] MEDS: DEXT 5%/0.45% NACL 1000ML 1,000 ML IV SCH ×2 (00:20→18:38)
[2018-09-23] MEDS: MORPHINE SULFATE 4 MG/ML CPJ (NOT FOR IM USE) IV PRN (00:46)
[2018-09-23 04:00] VITALS: BP 159/75
[2018-09-23] MEDS: BLOOD SUGAR DIAGNOSTIC STRIP TEST SCH ×4 (06:01→21:30)
[2018-09-23 06:30] LABS: GENTAMICIN RANDOM 1.9 ug/mL
[2018-09-23 08:00] VITALS: BP 149/71
[2018-09-23] MEDS: INSULIN LISPRO 100 UNITS/ML SUBCUT SCH ×4 (08:10→21:00)
[2018-09-23] MEDS: PANTOPRAZOLE SODIUM 40 MG/VIAL IV SCH (09:16)
[2018-09-23 12:00] VITALS: BP 153/78
[2018-09-23 12:20] LABS: BASOPHILS % 0.1 % (0.0-2.0); EOSINOPHILS % 0.2 % (0.0-5.0); HEMATOCRIT. 34.5 % (42.0-52.0); HEMOGLOBIN. 11.6 g/dL (14.0-18.0); LYMPHOCYTES % 12.1 % (20.0-50.0); MEAN CORPUSCULAR HEMOGLOBIN 33.7 pg (28.0-32.0); MEAN PLATELET VOLUME 10.9 fl (7.4-10.4); NEUTROPHILS % 78.6 % (40.0-76.0); PLATELET 96 x1000/uL (130-400); RED BLOOD CELL COUNT 3.45 mill/uL (4.7-6.1); RED CELL DISTRIBUTION WIDTH 14.2 % (11.6-14.6)
[2018-09-23] MEDS ORDERED: VANCOMYCIN 1 G PREMIX 200 ML IV SCH (13:00)
[2018-09-23] MEDS ORDERED: GENTAMICIN 100MG PREMIX 50 ML IV SCH (15:00)
[2018-09-23] MEDS: ONDANSETRON HCL 4MG/2ML INJ IV PRN ×2 (15:36→21:24)
[2018-09-23] MEDS: HYDROMORPHONE HCL/PF 2MG/ML CPJ IV PRN ×2 (15:37→22:24)
[2018-09-23] MEDS: HYDRALAZINE 20MG/ML VIAL IV PRN (15:37)
[2018-09-23 15:55] VITALS: BP 162/71
[2018-09-23 20:00] VITALS: BP 149/79
[2018-09-23] MEDS: ACETAMINOPHEN 325MG TABLET PO PRN (20:15)
[2018-09-24 04:00] VITALS: BP 142/55
[2018-09-24] MEDS: ONDANSETRON HCL 4MG/2ML INJ IV PRN (04:29)
[2018-09-24] MEDS: HYDROMORPHONE HCL/PF 2MG/ML CPJ IV PRN (04:29)
[2018-09-24 06:03] LABS: BASOPHILS % 0.1 % (0.0-2.0); EOSINOPHILS % 1.5 % (0.0-5.0); HEMATOCRIT. 33.3 % (42.0-52.0); HEMOGLOBIN. 11.2 g/dL (14.0-18.0); LYMPHOCYTES % 11.1 % (20.0-50.0); MEAN CORPUSCULAR HEMOGLOBIN 33.2 pg (28.0-32.0); MEAN CORPUSCULAR VOLUME 99.3 fL (80.0-94.0); MEAN PLATELET VOLUME 10.6 fl (7.4-10.4); MONOCYTES % 7.8 % (2.0-8.0); NEUTROPHILS % 79.5 % (40.0-76.0); PLATELET 106 x1000/uL (130-400); RED BLOOD CELL COUNT 3.36 mill/uL (4.7-6.1); RED CELL DISTRIBUTION WIDTH 14.2 % (11.6-14.6)
[2018-09-24] MEDS: BLOOD SUGAR DIAGNOSTIC STRIP TEST SCH (06:03)
[2018-09-24 08:00] VITALS: BP 177/80
[2018-09-24] MEDS: INSULIN LISPRO 100 UNITS/ML SUBCUT SCH (08:03)
[2018-09-24] MEDS: HYDRALAZINE 20MG/ML VIAL IV PRN (08:57)
[2018-09-24] MEDS: PANTOPRAZOLE SODIUM 40 MG/VIAL IV SCH (08:57)
[2018-09-24 11:15] VITALS: BP 157/78
[2018-09-24] MEDS ORDERED: DIPHENHYDRAMINE 25MG CAPSULE PO SCH (11:45)
[2018-09-24] MEDS: METRONIDAZOLE 500 MG PREMIX 100 ML IV SCH (12:00)
[2018-09-24] MEDS: DEXT 5%/0.45% NACL 1000ML 1,000 ML IV SCH (12:00)
== END 2018-09-24 13:38 | disposition left against medical advice (07) ==
LOC: ER 21:06 → 7WST 09-21 → EDBEDREQ 09-21 00:05 → EDBEDREQTM 09-21 00:05 → EDBEDREQDT 09-21 00:05 → ENRESERV 09-21 00:33 → EDBEDREQ 09-21 01:11
PROVIDERS: ADMIT Internal Medicine; ATTEND Internal Medicine
PROC: 5A1D70Z Performance of Urinary Filtration, Intermittent, Less than 6 Hours Per Day (ICD-10-PCS; principal; 2018-09-22)
DX: K80.10 Calculus of gallbladder with chronic cholecystitis without obstruction (principal); E11.22 Type 2 diabetes mellitus with diabetic chronic kidney disease; I13.11 Hypertensive heart and chronic kidney disease without heart failure, with stage 5 chronic kidney disease, or end stage renal disease; N18.6 End stage renal disease; K52.9 Noninfective gastroenteritis and colitis, unspecified; K76.0 Fatty (change of) liver, not elsewhere classified; E78.5 Hyperlipidemia, unspecified; I25.10 Atherosclerotic heart disease of native coronary artery without angina pectoris; F32.9 Major depressive disorder, single episode, unspecified; B19.20 Unspecified viral hepatitis C without hepatic coma; N40.0 Benign prostatic hyperplasia without lower urinary tract symptoms; M10.9 Gout, unspecified; F10.10 Alcohol abuse, uncomplicated; Z80.0 Family history of malignant neoplasm of digestive organs; Z90.49 Acquired absence of other specified parts of digestive tract; Z93.3 Colostomy status; Z99.2 Dependence on renal dialysis; Z88.0 Allergy status to penicillin; Z91.81 History of falling; Z87.81 Personal history of (healed) traumatic fracture; Z79.899 Other long term (current) drug therapy
CPT/HCPCS: 36415; 71045; 74176; 76705; 80048; 80170; 80202; 82962; 85027; 93005; 96374; 99285; C9113; J0360; J1170; J1580; J1956; J2060; J2270; J2405; J3010; J3370; J3490; J7060; Q0163